=== PATIENT | male | born 1965 | race Caucasian/White ===

== ENCOUNTER 2021-04-01 15:09 | Emergency (ER) | payer MEDICARE, OTHER ==
[2021-04-01 17:20] LABS: BASOPHIL 0.8 % (0-2); EOSINOPHIL 4.1 % (0-5); HCT 43.8 % (42.0-52.0); HGB 14.5 g/dl (13.2-18.0); LYMPHOCYTE 24.1 % (15-48); MCH 31.5 pg (25.0-31.0); MCHC 33.1 g/dL (32.0-36.0); MONOCYTE 6.7 % (0-12); MPV 10.6 fL (6.0-9.5); NEUTROPHIL 63.8 % (41-80); NRBC 0; PLT 167 K/uL (150-400); RBC 4.61 M/uL (4.70-6.00); WBC 8.7 K/uL (4.0-10.5)
[2021-04-01 17:36] LABS: INR 1.05 (0.9-1.2); PTT 33.8 SECONDS (22.2-34.7)
[2021-04-01 17:48] LABS: ALBUMIN 3.5 g/dL (3.4-5.0); BILIRUBIN - TOTAL 0.2 mg/dL (0.2-1.0); BUN/CREAT RATIO (CALC) 10.8 RATIO; CREATININE 1.02 mg/dL (0.67-1.17); GLOBULIN (CALCULATION) 3.6 g/dL; POTASSIUM 4.4 mmol/L (3.5-5.1); TOTAL PROTEIN 7.1 g/dL (6.4-8.2)
[2021-04-01] MEDS ORDERED: OXYCODONE-ACET1 EAC1 PO (19:15)
== END 2021-04-01 19:27 | disposition home or self-care (01) ==
LOC: FER 15:09
PROVIDERS: Emergency Medicine
DX: C34.02 Malignant neoplasm of left main bronchus (principal); C79.71 Secondary malignant neoplasm of right adrenal gland; J44.9 Chronic obstructive pulmonary disease, unspecified; F17.210 Nicotine dependence, cigarettes, uncomplicated; Z88.0 Allergy status to penicillin
CPT/HCPCS: 36415; 71045; 71260; 80053; 84484; 85025; 85610; 85730; 93005; J1170; J2405; J7030; Q9967